=== PATIENT | female | born 1980 | race Caucasian/White ===

== ENCOUNTER 2020-10-24 11:36 | Emergency (ER) | payer MEDICAID, SELFPAY ==
--- NOTE | ~2020-10-24 | MR_ITS ---
EXAMINATION: MR BRAIN WITHOUT CONTRAST CLINICAL INFORMATION: Dizziness. COMPARISON: CTA from 10/24/2020. TECHNIQUE: Multiplanar, multisequence imaging of the brain was performed without contrast. Slightly limited study with motion artifacts. FINDINGS: No diffusion abnormalities are identified to suggest an acute or subacute infarct. The ventricles are normal in size. No mass effect or midline shift is seen. No brain parenchymal signal abnormality is noted. No extra-axial fluid collections are seen. The brainstem and cerebellum are normal. The gradient refocused acquisition is normal. The craniovertebral junction and midline structures are normal. The marrow is somewhat low in signal diffusely. The major intracranial flow voids at the level of the [place] are preserved. The dural venous sinus flow voids are maintained. The mastoid air cells and paranasal sinuses are well aerated. MR/MR head/brain wo con IMPRESSION: Normal MRI of the brain. No acute process. Generalized signal abnormality within the bone marrow. This finding is nonspecific and possible etiologies include stimulated red marrow, as can be seen with smoking, iron deficiency, and chronic infection. Recommend correlation with clinical history and consider a CBC analysis for further workup.
--- NOTE | ~2020-10-24 | CT_ITS ---
EXAMINATION: CT ANGIOGRAM NECK WITH CONTRAST CT ANGIOGRAM BRAIN WITH CONTRAST CLINICAL INFORMATION: Dizziness. Outside window. Stroke? COMPARISON: None. TECHNIQUE: Test bolus sequences followed by intravenous administration 70 mL of Omnipaque 350. Helical imaging was performed in the axial plane from the thoracic inlet to the skull vertex. Delayed postcontrast imaging of the head was also performed. The data was processed at the cytogenetics technologist workstation for generation of MIP sequences. Angled MIPs and volume rendered reformatted images were also generated at an offline 3D workstation. Stenoses are assessed in accordance with NASCET criteria unless otherwise indicated. This CT examination was performed using dose optimization techniques as appropriate, variously including the following: *Automated exposure control *Adjustment of mA and/or kV according to patient size (this includes techniques or standardized protocols for targeted exams where dose is matched to indication/reason for exam; i.e. extremities or head) *Use of iterative reconstruction technique DLP: 2237 mGy-cm FINDINGS: Head CT: There is no intracranial hemorrhage, large acute infarction, or mass lesion. The ventricles are normal in size and configuration without evidence of hydrocephalus. No abnormal enhancement is seen on the postcontrast images. The dural venous sinuses demonstrate normal opacification. The visualized paranasal sinuses and mastoid air cells are clear. Neck CTA: There is a normal aortic arch with no significant stenosis of the great vessel origins. The common and internal carotid arteries are normal in course and caliber. Both vertebral arteries are widely patent throughout their extracranial cervical course. Head CTA: No intracranial aneurysm is seen. The intracranial internal carotid arteries appear normal. The anterior cerebral artery, anterior communicating artery, and middle cerebral arteries appear normal. The intradural vertebral arteries and basilar artery appear normal. The posterior cerebral arteries appear normal. Non-vascular findings: The cervical soft tissues are within normal limits. The upper lungs are clear. No significant abnormality seen within the spine. CT/CT angio head neck IMPRESSION: CT head: No intracranial hemorrhage or large acute infarction. CTA neck: No stenosis in the major arteries of the neck. CTA head: No large vessel occlusion or stenosis within the intracranial circulation.. This critical result was discussed with ALYSHA Bunch on 10/24/2020 3:02 PM, and it was ascertained that the content and urgency of the report was understood at the time of direct communication.
[2020-10-24 11:42] VITALS: BP 116/78; BP 120/86; PULSE 79; PULSE 86; RESP 18; TEMP 36.9; O2SAT 99; BMI 28.2
[2020-10-24 13:10] LABS: MANUAL DIFF FLAG NO
[2020-10-24 13:17] VITALS: BP 127/78; PULSE 68; RESP 16; O2SAT 100
--- NOTE | 2020-10-24 13:17 | ECG_ITS ---
Test Reason : WEAKNESS Blood Pressure : / mmHG Vent. Rate : 059 BPM Atrial Rate : 059 BPM P-R Int : 172 ms QRS Dur : 082 ms QT Int : 432 ms P-R-T Axes : 052 031 020 degrees QTc Int : 427 ms Sinus bradycardia with sinus arrhythmia Otherwise normal ECG No previous ECGs available Referred By: Julian Mcfadden Electronically Signed By:LANI MORENO MD
[2020-10-24 13:18] LABS: Basophils Percent Auto 0.6 % (0-2); Eosinophils Absolute Auto 0.1 X10*3/uL (0.0-0.4); Eosinophils Percent Auto 1.6 % (0-4); Hematocrit 27.6 % (37-47); Hemoglobin 7.8 g/dl (12.0-16.0); Imm Gran Abs Auto 0.01 X10*3/uL (0.00-0.03); Imm Gran Pct Auto 0.2 % (0.0-0.4); Lymphocytes Absolute Auto 1.2 X10*3/uL (1.2-4.9); Lymphocytes Percent Auto 24.7 % (20-40); Mean Corpuscular HGB Conc 28.3 g/dl (31.0-35.0); Mean Corpuscular Hemoglobin 17.8 pg (27.0-33.0); Mean Platelet Volume 8.6 fL (9.4-12.3); Monocytes Absolute Auto 0.3 X10*3/uL (0.1-1.2); Monocytes Percent Auto 5.9 % (2-11); Neutrophils Absolute Auto 3.3 X10*3/uL (2.0-8.3); Platelet Count 432 X10*3/uL (160-400); Red Blood Count 4.39 X10*6/uL (4.20-5.50); Red Cell Distribution Width 21.1 % (11.0-16.0); White Blood Count 4.9 X10*3/uL (4.8-10.8)
[2020-10-24 13:25] LABS: Mean Corpuscular Volume 62.9 fL (80-98)
[2020-10-24] MEDS: 0.9 % Sodium Chloride 1,000 ML 999 ML IV (13:34)
[2020-10-24] MEDS: Meclizine HCl 25 MG TABLET 50 MG PO (13:34)
[2020-10-24] MEDS: diazePAM 2 MG TABLET PO (13:34)
[2020-10-24 13:36] VITALS: BP 132/67; PULSE 62
[2020-10-24 13:37] VITALS: BP 122/80; BP 126/75; PULSE 64; PULSE 70
[2020-10-24 13:43] LABS: Anion Gap 13 (12-20); Blood Urea Nitrogen 8 mg/dL (9-16); Calcium 8.7 mg/dL (8.4-10.2); Carbon Dioxide 24 mmol/L (22-29); Chloride 105 mmol/L (96-108); Creatinine Clr Calc Pharmacy 84.7; Estimated Glomerular Filt Rate > 60; Glucose Random 110 mg/dL (60-115); Potassium 4.3 mmol/L (3.3-5.1); Sodium 138 mmol/L (135-145)
--- NOTE | 2020-10-24 13:43 | ED.DIZZY ---
HPI - Dizziness General Chief Complaint: Dizziness <ALYSHA Gee Last Filed: 10/24/20 21:46> Stated Complaint: DIZZY THIS AM <ALYSHA Gee Last Filed: 10/24/20 21:46> Time Seen by Provider: 10/24/20 16:30 <ALYSHA Gee Last Filed: 10/24/20 21:46> Source: patient <ALYSHA Gee Last Filed: 10/24/20 21:46> Mode of arrival: ambulatory <ALYSHA Gee Last Filed: 10/24/20 21:46> Limitations: no limitations <ALYSHA Gee Last Filed: 10/24/20 21:46> History of Present Illness HPI Narrative: Patient presents to ED for dizzines described as weakness and the room spinning. Patient states she woke up with the dizziness. Patient denies hitting head recently, fever, chills, neck stiffness. Patient states also stating having migraine exacerbation since last night. Patient states history of migraines but does not have any PCP does not follow-up with no neurology. Is not on any migraine regimen. <ALYSHA Gee Last Filed: 10/24/20 21:46> Related Data Home Medications: Home Medications Medication Instructions Recorded Confirmed No Known Home Meds 10/24/20 10/24/20 <ALYSHA Gee Last Filed: 10/24/20 21:46> Allergies/Adverse Reactions: Allergies Allergy/AdvReac Type Severity Reaction Status Date / Time amoxicillin Allergy Swelling Verified 10/24/20 11:47 <ALYSHA Gee Last Filed: 10/24/20 21:46> Review of Systems Review of Systems: Yes all other systems are reviewed and are negative <ALYSHA Gee Last Filed: 10/24/20 21:46> Constitutional: Constitutional: Reports as per HPI and Reports no additional constitutional complaints <ALYSHA Gee Last Filed: 10/24/20 21:46> Eyes: Eyes: Reports as per HPI and Reports no additional eye complaints <ALYSHA Gee Last Filed: 10/24/20 21:46> ENT: Reports system reviewed and no additional complaints, except as documented, Reports as per HPI and Reports dizziness <ALYSHA Gee Last Filed: 10/24/20 21:46> Cardiovascular: Cardiovascular: Reports as per HPI and Reports no additional cardiovascular complaints <ALYSHA Gee Last Filed: 10/24/20 21:46> Respiratory: Respiratory: Reports as per HPI and Reports no additional respiratory complaints <ALYSHA Gee Last Filed: 10/24/20 21:46> Gastrointestinal: Gastrointestinal: Reports as per HPI and Reports no additional gastrointestinal complaints <ALYSHA Gee - Last Filed: 10/24/20 21:46> Genitourinary: Genitourinary: Reports no additional female genitourinary complaints and Reports as per HPI <ALYSHA Gee Last Filed: 10/24/20 21:46> Musculoskeletal: Musculoskeletal: Reports no additional musculoskeletal complaints and Reports as per HPI <ALYSHA Gee - Last Filed: 10/24/20 21:46> Integumentary/Breasts: Skin/Breast: Reports system reviewed and no additional complaints, except as docu and Reports as per HPI <ALYSHA Gee - Last Filed: 10/24/20 21:46> Neurologic: Reports system reviewed and no additional complaints, except as documented, Reports as per HPI and Reports dizziness <ALYSHA Gee Last Filed: 10/24/20 21:46> [facility] Social History Social History: Social History Alcohol intake: never Smoking Status: Never smoker Use of substances other than those prescribed or required for medical reasons: No Advance Directives: No Advance Directives Information Provided: No <ALYSHA Gee - Last Filed: 10/24/20 21:46> Physical Exam Vital Signs: Vital Signs: Last Vital Signs Temp 98.4 F 10/24/20 11:42 Pulse 75 10/24/20 18:59 Resp 10/25/20 02:00 BP 114/68 10/24/20 18:59 Pulse Ox 98 10/25/20 02:00 Body Mass Index 28.2 <ALYSHA Gee - Last Filed: 10/24/20 21:46> Vital Signs: Last Vital Signs Temp 98.4 F 10/24/20 11:42 Pulse 75 10/24/20 18:59 Resp 10/25/20 02:00 BP 114/68 10/24/20 18:59 Pulse Ox 98 10/25/20 02:00 Body Mass Index 28.2 <Izabela Zepeda MD - Last Filed: 10/25/20 03:06> Const: General: cooperative, healthy appearing, comfortable, no acute distress, well developed, alert, awake and Physically active <ALYSHA Gee Last Filed: 10/24/20 21:46> Orientation/consciousness: patient oriented x3 <ALYSHA Gee Last Filed: 10/24/20 21:46> HENMT: Head: Yes normal to inspection, Yes No palpable skull fracture present, Yes normocephalic, Yes atraumatic, No abrasion, No Acrocyanosis present, No Steele's sign, No contusion, No cranial bruits, No hematoma, No laceration, No occipital foramen tenderness, No palpable skull fracture, No raccoon eyes, No scalp lesion, No scalp tenderness, No Temporal artery tenderness present and No periorbital ecchymosis <ALYSHA Gee Last Filed: 10/24/20 21:46> Eyes: Other: left horizontal nystagmus <ALYSHA Gee Last Filed: 10/24/20 21:46> General: appearance normal, both eyes and all related structures <ALYSHA Gee Last Filed: 10/24/20 21:46> Neck: Neck: Yes normal visual inspection, Yes full ROM, Yes no lymphadenopathy, Yes no meningeal signs, Yes trachea midline, Yes supple, No midline deformity, No positive Brudzinski's sign, No positive Kernig's sign and No tender <ALYSHA Gee Last Filed: 10/24/20 21:46> Chest: Chest palpation & inspection: normal inspection of the chest and normal palpation of entire chest wall <ALYSHA Gee Last Filed: 10/24/20 21:46> Resp: Effort & Inspection: normal respiratory effort and able to speak in complete sentences <ALYSHA Gee Last Filed: 10/24/20 21:46> Auscultation: clear to auscultation bilaterally <ALYSHA Gee Last Filed: 10/24/20 21:46> Cardio: Jugular venous distension: no JVD <ALYSHA Gee Last Filed: 10/24/20 21:46> Heart sounds: S1 normal heart sound present and S2 normal heart sound present <ALYSHA Gee Last Filed: 10/24/20 21:46> GI: Inspection: Yes normal to inspection and No abdominal wall ecchymosis <ALYSHA Gee Last Filed: 10/24/20 21:46> Palpation (GI): Soft to palpation, not firm, nontender, no guarding and not rigid <ALYSHA Gee Ryan Last Filed: 10/24/20 21:46> : General: No CVA tenderness and Yes no CVA tenderness <ALYSHA Gee Last Filed: 10/24/20 21:46> Back/Spine/Pelvis: Back: no CVA tenderness, No CVA tenderness and No back tenderness <ALYSHA Gee Last Filed: 10/24/20 21:46> Skin: General skin exam: no rashes or lesions noted and abnormal elasticity <ALYSHA Gee Ryan Last Filed: 10/24/20 21:46> Neuro: Other: Negative facial droop. Negative pronator drift. Speech is normal. Negative for any focal deficit. All extremities strength are equal. Positive for left horizontal nystagmus. Patient feels dizzy on ambulation <ALYSHA Gee Last Filed: 10/24/20 21:46> General: patient oriented x3, no meningeal signs and CN's II-XI intact bilaterally <ALYSHA Gee Last Filed: 10/24/20 21:46> Extrem: General: Yes normal to inspection and Yes full ROM <ALYSHA Gee Ryan Last Filed: 10/24/20 21:46> Psych: Appearance: grossly normal, well kempt and not disheveled <ALYSHA Gee Last Filed: 10/24/20 21:46> NIH Stroke Scale Internal: Other (over 4 hours. woke up with symptoms) <ALYSHA Gee Last Filed: 10/24/20 21:46> Level of Consciousness: Alert <ALYSHA Gee Last Filed: 10/24/20 21:46> Level of Consciousness Questions: Answers both questions correctly <ALYSHA Gee - Last Filed: 10/24/20 21:46> Level of Consciousness Commands: Performs both tasks correctly <ALYSHA Gee - Last Filed: 10/24/20 21:46> Best Gaze: Normal <ALYSHA Gee Last Filed: 10/24/20 21:46> Visual: No visual loss <ALYSHA Gee - Last Filed: 10/24/20 21:46> Facial Palsy: Normal <ALYSHA Gee - Last Filed: 10/24/20 21:46> Motor Arm (Right): No drift <ALYSHA Gee - Last Filed: 10/24/20 21:46> Motor Arm (Left): No drift <ALYSHA Gee - Last Filed: 10/24/20 21:46> Motor Leg (Right): No drift <ALYSHA Gee - Last Filed: 10/24/20 21:46> Motor Leg (Left): No drift <ALYSHA Gee - Last Filed: 10/24/20 21:46> Limb Ataxia: Absent <ALYSHA Gee - Last Filed: 10/24/20 21:46> Sensory: Normal <ALYSHA Gee Last Filed: 10/24/20 21:46> Best Language: No aphasia <ALYSHA Gee - Last Filed: 10/24/20 21:46> Dysarthia: Normal <ALYSHA Gee - Last Filed: 10/24/20 21:46> Extinction and Inattention: No abnormality <ALYSHA Gee - Last Filed: 10/24/20 21:46> Score: 0 <ALYSHA Gee - Last Filed: 10/24/20 21:46> Course Course Course Narrative: Negative for any focal deficit. History physical exam does not indicate stroke, but if patient is outside the window since she woke up with dizziness. This may be a complicated migraine exacerbation/vertigo. Will order orthostatics, basic labs, troponin, EKG, imaging of head and neck. <ALYSHA Gee Last Filed: 10/24/20 21:46> I received sign-out from ALYSHA Mcfadden. Patient was ambulated at 03:00, patient was able to walk by herself, steady gait, unassisted. Patient has a sober ride picking her up. Patient ready for discharge. <Izabela Zepeda MD - Last Filed: 10/25/20 03:06> Reevaluation(s) Reevaluation #1: Patient's orthostatics negative. EKG sinus bradycardia negative STEMI. Negative for any neuro deficit. <ALYSHA Gee - Last Filed: 10/24/20 21:46> Time: 14:51 <ALYSHA Gee - Last Filed: 10/24/20 21:46> Reevaluation #2: Patient's CT came back negative for stroke. Patient repeat CBC is stable. Once again attempt was made for patient to ambulate and patient states she still feels dizzy cannot walk on her own. Due to this patient sent for MRI to rule posterior cerebellar stroke. Once again negative for focal deficit. Rectal exam negative for any gray blood <ALYSHA Gee - Last Filed: 10/24/20 21:46> Time: 17:25 <ALYSHA Gee - Last Filed: 10/24/20 21:46> Reevaluation #3: Patient MRI came back negative. Patient now able to get up and ambulate a little, but then immediately began shuffling back and forward like she was about to fall. Patient was placed back in the bed. Awaiting U tox and alcohol level. Will call hospitalist for admission. Repeat CBC came back stable. Once again patient states known history of anemia and never had any blood transfusion. Two CBCs were done due to patient never being in the ED before and there was none to compare in the past. <ALYSHA Gee - Last Filed: 10/24/20 21:46> Time: 19:47 <ALYSHA Gee - Last Filed: 10/24/20 21:46> Additional Reevaluation(s): Spoke with hospitalist concerning case due to patient still having trouble walking. Hospice recommend patient be placed in ED observation and I agree with plan. Patient is alert oriented x3. Patient states headache resolved after receiving Fioricet and Reglan. Not suspecting meningitis. Once again no focal deficit. Not suspecting encephalitis. utox shows benzoa and barbituates which may be cause of dizziness, but patient will be admitted to observation. <ALYSHA Gee - Last Filed: 10/24/20 21:46> MDM - Dizziness Lab Data Result diagrams: : 10/24/20 16:46 10/24/20 13:01 <ALYSHA Gee - Last Filed: 10/24/20 21:46> Labs: Lab Results 10/24/20 10/24/20 10/24/20 Range/Units 13:01 13:01 13:01 WBC 4.9 (4.8-10.8) X10*3/uL RBC 4.39 (4.20-5.50) X10*6/uL Hgb 7.8 L (12.0-16.0) g/dl Hct 27.6 L (37-47) % MCV 62.9 L (80-98) fL MCH 17.8 L (27.0-33.0) pg MCHC 28.3 L (31.0-35.0) g/dl RDW 21.1 H (11.0-16.0) % Plt Count 432 H (160-400) X10*3/uL MPV 8.6 L (9.4-12.3) fL Immature Gran % (Auto) 0.2 (0.0-0.4) % Neut % (Auto) 67.0 (45-73) % Lymph % (Auto) 24.7 (20-40) % [place] % (Auto) 5.9 (2-11) % Eos % (Auto) 1.6 (0-4) % Baso % (Auto) 0.6 (0-2) % Lymph # (Auto) 1.2 (1.2-4.9) X10*3/uL [place] # (Auto) 0.3 (0.1-1.2) X10*3/uL Eos # (Auto) 0.1 (0.0-0.4) X10*3/uL Baso # (Auto) 0.0 (0.0-0.2) X10*3/uL Abs Immat Gran (auto) 0.01 (0.00-0.03) X10*3/uL Absolute Neuts (auto) 3.3 (2.0-8.3) X10*3/uL Absolute Nucleated RBC 0.000 (0.0-0.012) X10*3/uL Nucleated RBC % (auto) 0.0 (0.0-0.2) /100WBC Hold Purple Top SEE NOTE PT (10.8-13.0) SEC INR (0.9-1.1) APTT (24.1-38.0) SEC Hold Blue Top Sodium 138 (135-145) mmol/L Potassium 4.3 (3.3-5.1) mmol/L Chloride 105 (96-108) mmol/L Carbon Dioxide 24 (22-29) mmol/L Anion Gap 13 (12-20) BUN 8 L (9-16) mg/dL Creatinine 0.69 (0.5-1.4) mg/dL Estim Creat Clear Calc 84.7 Estimated GFR > 60 Random Glucose 110 (60-115) mg/dL Calcium 8.7 (8.4-10.2) mg/dL Magnesium 2.2 (1.6-2.6) mg/dL Troponin I High Sens (<3.5-17.0) ng/L Beta HCG, Quant < 2 mIU/mL Urine Color Urine Appearance Urine pH (5.0-8.0) Ur Specific [place] (1.005-1.025) Urine Protein (NEG-TRACE) MG/DL Urine Glucose (UA) (NEG) MG/DL Urine Ketones (NEG) MG/DL Urine Blood (NEG) Urine Nitrite (NEG) Ur Leukocyte Esterase (NEG) Urine RBC (0) /HPF Urine WBC (0-4) /HPF Ur Squamous Epith Cells /LPF Urine Bacteria /LPF Urine Test (NEGATIVE) Stool Occult Blood (NEG) Urine Opiates Screen (Not Detect) Ur Barbiturates Screen (Not Detect) Ur Phencyclidine Scrn (Not Detect) Ur Amphetamines Screen (Not Detect) U Benzodiazepines Scrn (Not Detect) Urine Cocaine Screen (Not Detect) U Marijuana (THC) Screen (Not Detect) Ethyl Alcohol mg/dL COVID-19 ([facility]EANA) (Negative) COVID-19 Clin Com 10/24/20 10/24/20 10/24/20 Range/Units 13:01 13:01 16:46 WBC 6.7 (4.8-10.8) X10*3/uL RBC 4.13 L (4.20-5.50) X10*6/uL Hgb 7.5 L (12.0-16.0) g/dl Hct 26.3 L (37-47) % MCV 63.7 L (80-98) fL MCH 18.2 L (27.0-33.0) pg MCHC 28.5 L (31.0-35.0) g/dl RDW 21.2 H (11.0-16.0) % Plt Count 385 (160-400) X10*3/uL MPV 8.6 L (9.4-12.3) fL Immature Gran % (Auto) 0.3 (0.0-0.4) % Neut % (Auto) 61.2 (45-73) % Lymph % (Auto) 28.6 (20-40) % [place] % (Auto) 6.8 (2-11) % Eos % (Auto) 2.6 (0-4) % Baso % (Auto) 0.5 (0-2) % Lymph # (Auto) 1.9 (1.2-4.9) X10*3/uL [place] # (Auto) 0.5 (0.1-1.2) X10*3/uL Eos # (Auto) 0.2 (0.0-0.4) X10*3/uL Baso # (Auto) 0.0 (0.0-0.2) X10*3/uL Abs Immat Gran (auto) 0.02 (0.00-0.03) X10*3/uL Absolute Neuts (auto) 4.1 (2.0-8.3) X10*3/uL Absolute Nucleated RBC 0.000 (0.0-0.012) X10*3/uL Nucleated RBC % (auto) 0.0 (0.0-0.2) /100WBC Hold Purple Top PT 13.3 H (10.8-13.0) SEC INR 1.1 (0.9-1.1) APTT 27.7 (24.1-38.0) SEC Hold Blue Top SEE NOTE Sodium (135-145) mmol/L Potassium (3.3-5.1) mmol/L Chloride (96-108) mmol/L Carbon Dioxide (22-29) mmol/L Anion Gap (12-20) BUN (9-16) mg/dL Creatinine (0.5-1.4) mg/dL Estim Creat Clear Calc Estimated GFR Random Glucose (60-115) mg/dL Calcium (8.4-10.2) mg/dL Magnesium (1.6-2.6) mg/dL Troponin I High Sens 7.2 (<3.5-17.0) ng/L Beta HCG, Quant mIU/mL Urine Color Urine Appearance Urine pH (5.0-8.0) Ur Specific [place] (1.005-1.025) Urine Protein (NEG-TRACE) MG/DL Urine Glucose (UA) (NEG) MG/DL Urine Ketones (NEG) MG/DL Urine Blood (NEG) Urine Nitrite (NEG) Ur Leukocyte Esterase (NEG) Urine RBC (0) /HPF Urine WBC (0-4) /HPF Ur Squamous Epith Cells /LPF Urine Bacteria /LPF Urine Test (NEGATIVE) Stool Occult Blood (NEG) Urine Opiates Screen (Not Detect) Ur Barbiturates Screen (Not Detect) Ur Phencyclidine Scrn (Not Detect) Ur Amphetamines Screen (Not Detect) U Benzodiazepines Scrn (Not Detect) Urine Cocaine Screen (Not Detect) U Marijuana (THC) Screen (Not Detect) Ethyl Alcohol mg/dL COVID-19 ([facility]EANA) (Negative) COVID-19 Clin Com 10/24/20 10/24/20 10/24/20 Range/Units 19:48 19:48 19:48 WBC (4.8-10.8) X10*3/uL RBC (4.20-5.50) X10*6/uL Hgb (12.0-16.0) g/dl Hct (37-47) % MCV (80-98) fL MCH (27.0-33.0) pg MCHC (31.0-35.0) g/dl RDW (11.0-16.0) % Plt Count (160-400) X10*3/uL MPV (9.4-12.3) fL Immature Gran % (Auto) (0.0-0.4) % Neut % (Auto) (45-73) % Lymph % (Auto) (20-40) % [place] % (Auto) (2-11) % Eos % (Auto) (0-4) % Baso % (Auto) (0-2) % Lymph # (Auto) (1.2-4.9) X10*3/uL [place] # (Auto) (0.1-1.2) X10*3/uL Eos # (Auto) (0.0-0.4) X10*3/uL Baso # (Auto) (0.0-0.2) X10*3/uL Abs Immat Gran (auto) (0.00-0.03) X10*3/uL Absolute Neuts (auto) (2.0-8.3) X10*3/uL Absolute Nucleated RBC (0.0-0.012) X10*3/uL Nucleated RBC % (auto) (0.0-0.2) /100WBC Hold Purple Top PT (10.8-13.0) SEC INR (0.9-1.1) APTT (24.1-38.0) SEC Hold Blue Top Sodium (135-145) mmol/L Potassium (3.3-5.1) mmol/L Chloride (96-108) mmol/L Carbon Dioxide (22-29) mmol/L Anion Gap (12-20) BUN (9-16) mg/dL Creatinine (0.5-1.4) mg/dL Estim Creat Clear Calc Estimated GFR Random Glucose (60-115) mg/dL Calcium (8.4-10.2) mg/dL Magnesium (1.6-2.6) mg/dL Troponin I High Sens (<3.5-17.0) ng/L Beta HCG, Quant mIU/mL Urine Color STRAW Urine Appearance CLEAR Urine pH 6.5 (5.0-8.0) Ur Specific [place] 1.015 (1.005-1.025) Urine Protein NEG (NEG-TRACE) MG/DL Urine Glucose (UA) NEG (NEG) MG/DL Urine Ketones 5 (NEG) MG/DL Urine Blood NEG (NEG) Urine Nitrite NEG (NEG) Ur Leukocyte Esterase NEG (NEG) Urine RBC 0-2 (0) /HPF Urine WBC 0-2 (0-4) /HPF Ur Squamous Epith Cells 3+ /LPF Urine Bacteria NONE /LPF Urine Test NEGATIVE (NEGATIVE) Stool Occult Blood (NEG) Urine Opiates Screen Not Detected (Not Detect) Ur Barbiturates Screen POSITIVE H (Not Detect) Ur Phencyclidine Scrn Not Detected (Not Detect) Ur Amphetamines Screen Not Detected (Not Detect) U Benzodiazepines Scrn POSITIVE H (Not Detect) Urine Cocaine Screen Not Detected (Not Detect) U Marijuana (THC) Screen POSITIVE H (Not Detect) Ethyl Alcohol mg/dL COVID-19 ([facility]EANA) (Negative) COVID-19 Clin Com 10/24/20 10/24/20 10/24/20 Range/Units 19:48 20:22 21:33 WBC (4.8-10.8) X10*3/uL RBC (4.20-5.50) X10*6/uL Hgb (12.0-16.0) g/dl Hct (37-47) % MCV (80-98) fL MCH (27.0-33.0) pg MCHC (31.0-35.0) g/dl RDW (11.0-16.0) % Plt Count (160-400) X10*3/uL MPV (9.4-12.3) fL Immature Gran % (Auto) (0.0-0.4) % Neut % (Auto) (45-73) % Lymph % (Auto) (20-40) % [place] % (Auto) (2-11) % Eos % (Auto) (0-4) % Baso % (Auto) (0-2) % Lymph # (Auto) (1.2-4.9) X10*3/uL [place] # (Auto) (0.1-1.2) X10*3/uL Eos # (Auto) (0.0-0.4) X10*3/uL Baso # (Auto) (0.0-0.2) X10*3/uL Abs Immat Gran (auto) (0.00-0.03) X10*3/uL Absolute Neuts (auto) (2.0-8.3) X10*3/uL Absolute Nucleated RBC (0.0-0.012) X10*3/uL Nucleated RBC % (auto) (0.0-0.2) /100WBC Hold Purple Top PT (10.8-13.0) SEC INR (0.9-1.1) APTT (24.1-38.0) SEC Hold Blue Top Sodium (135-145) mmol/L Potassium (3.3-5.1) mmol/L Chloride (96-108) mmol/L Carbon Dioxide (22-29) mmol/L Anion Gap (12-20) BUN (9-16) mg/dL Creatinine (0.5-1.4) mg/dL Estim Creat Clear Calc Estimated GFR Random Glucose (60-115) mg/dL Calcium (8.4-10.2) mg/dL Magnesium (1.6-2.6) mg/dL Troponin I High Sens 6.9 (<3.5-17.0) ng/L Beta HCG, Quant mIU/mL Urine Color Urine Appearance Urine pH (5.0-8.0) Ur Specific [place] (1.005-1.025) Urine Protein (NEG-TRACE) MG/DL Urine Glucose (UA) (NEG) MG/DL Urine Ketones (NEG) MG/DL Urine Blood (NEG) Urine Nitrite (NEG) Ur Leukocyte Esterase (NEG) Urine RBC (0) /HPF Urine WBC (0-4) /HPF Ur Squamous Epith Cells /LPF Urine Bacteria /LPF Urine Test (NEGATIVE) Stool Occult Blood (NEG) Urine Opiates Screen (Not Detect) Ur Barbiturates Screen (Not Detect) Ur Phencyclidine Scrn (Not Detect) Ur Amphetamines Screen (Not Detect) U Benzodiazepines Scrn (Not Detect) Urine Cocaine Screen (Not Detect) U Marijuana (THC) Screen (Not Detect) Ethyl Alcohol < 10 mg/dL COVID-19 ([facility]EANA) Negative (Negative) COVID-19 Clin Com See Note 10/24/20 Range/Units 21:40 WBC (4.8-10.8) X10*3/uL RBC (4.20-5.50) X10*6/uL Hgb (12.0-16.0) g/dl Hct (37-47) % MCV (80-98) fL MCH (27.0-33.0) pg MCHC (31.0-35.0) g/dl RDW (11.0-16.0) % Plt Count (160-400) X10*3/uL MPV (9.4-12.3) fL Immature Gran % (Auto) (0.0-0.4) % Neut % (Auto) (45-73) % Lymph % (Auto) (20-40) % [place] % (Auto) (2-11) % Eos % (Auto) (0-4) % Baso % (Auto) (0-2) % Lymph # (Auto) (1.2-4.9) X10*3/uL [place] # (Auto) (0.1-1.2) X10*3/uL Eos # (Auto) (0.0-0.4) X10*3/uL Baso # (Auto) (0.0-0.2) X10*3/uL Abs Immat Gran (auto) (0.00-0.03) X10*3/uL Absolute Neuts (auto) (2.0-8.3) X10*3/uL Absolute Nucleated RBC (0.0-0.012) X10*3/uL Nucleated RBC % (auto) (0.0-0.2) /100WBC Hold Purple Top PT (10.8-13.0) SEC INR (0.9-1.1) APTT (24.1-38.0) SEC Hold Blue Top Sodium (135-145) mmol/L Potassium (3.3-5.1) mmol/L Chloride (96-108) mmol/L Carbon Dioxide (22-29) mmol/L Anion Gap (12-20) BUN (9-16) mg/dL Creatinine (0.5-1.4) mg/dL Estim Creat Clear Calc Estimated GFR Random Glucose (60-115) mg/dL Calcium (8.4-10.2) mg/dL Magnesium (1.6-2.6) mg/dL Troponin I High Sens (<3.5-17.0) ng/L Beta HCG, Quant mIU/mL Urine Color Urine Appearance Urine pH (5.0-8.0) Ur Specific [place] (1.005-1.025) Urine Protein (NEG-TRACE) MG/DL Urine Glucose (UA) (NEG) MG/DL Urine Ketones (NEG) MG/DL Urine Blood (NEG) Urine Nitrite (NEG) Ur Leukocyte Esterase (NEG) Urine RBC (0) /HPF Urine WBC (0-4) /HPF Ur Squamous Epith Cells /LPF Urine Bacteria /LPF Urine Test (NEGATIVE) Stool Occult Blood NEG (NEG) Urine Opiates Screen (Not Detect) Ur Barbiturates Screen (Not Detect) Ur Phencyclidine Scrn (Not Detect) Ur Amphetamines Screen (Not Detect) U Benzodiazepines Scrn (Not Detect) Urine Cocaine Screen (Not Detect) U Marijuana (THC) Screen (Not Detect) Ethyl Alcohol mg/dL COVID-19 ([facility]EANA) (Negative) COVID-19 Clin Com <ALYSHA Gee - Last Filed: 10/24/20 21:46> Lab Results 10/24/20 10/24/20 10/24/20 Range/Units 13:01 13:01 13:01 WBC 4.9 (4.8-10.8) X10*3/uL RBC 4.39 (4.20-5.50) X10*6/uL Hgb 7.8 L (12.0-16.0) g/dl Hct 27.6 L (37-47) % MCV 62.9 L (80-98) fL MCH 17.8 L (27.0-33.0) pg MCHC 28.3 L (31.0-35.0) g/dl RDW 21.1 H (11.0-16.0) % Plt Count 432 H (160-400) X10*3/uL MPV 8.6 L (9.4-12.3) fL Immature Gran % (Auto) 0.2 (0.0-0.4) % Neut % (Auto) 67.0 (45-73) % Lymph % (Auto) 24.7 (20-40) % [place] % (Auto) 5.9 (2-11) % Eos % (Auto) 1.6 (0-4) % Baso % (Auto) 0.6 (0-2) % Lymph # (Auto) 1.2 (1.2-4.9) X10*3/uL [place] # (Auto) 0.3 (0.1-1.2) X10*3/uL Eos # (Auto) 0.1 (0.0-0.4) X10*3/uL Baso # (Auto) 0.0 (0.0-0.2) X10*3/uL Abs Immat Gran (auto) 0.01 (0.00-0.03) X10*3/uL Absolute Neuts (auto) 3.3 (2.0-8.3) X10*3/uL Absolute Nucleated RBC 0.000 (0.0-0.012) X10*3/uL Nucleated RBC % (auto) 0.0 (0.0-0.2) /100WBC Hold Purple Top SEE NOTE PT (10.8-13.0) SEC INR (0.9-1.1) APTT (24.1-38.0) SEC Hold Blue Top Sodium 138 (135-145) mmol/L Potassium 4.3 (3.3-5.1) mmol/L Chloride 105 (96-108) mmol/L Carbon Dioxide 24 (22-29) mmol/L Anion Gap 13 (12-20) BUN 8 L (9-16) mg/dL Creatinine 0.69 (0.5-1.4) mg/dL Estim Creat Clear Calc 84.7 Estimated GFR > 60 Random Glucose 110 (60-115) mg/dL Calcium 8.7 (8.4-10.2) mg/dL Magnesium 2.2 (1.6-2.6) mg/dL Troponin I High Sens (<3.5-17.0) ng/L Beta HCG, Quant < 2 mIU/mL Urine Color Urine Appearance Urine pH (5.0-8.0) Ur Specific [place] (1.005-1.025) Urine Protein (NEG-TRACE) MG/DL Urine Glucose (UA) (NEG) MG/DL Urine Ketones (NEG) MG/DL Urine Blood (NEG) Urine Nitrite (NEG) Ur Leukocyte Esterase (NEG) Urine RBC (0) /HPF Urine WBC (0-4) /HPF Ur Squamous Epith Cells /LPF Urine Bacteria /LPF Urine Test (NEGATIVE) Stool Occult Blood (NEG) Urine Opiates Screen (Not Detect) Ur Barbiturates Screen (Not Detect) Ur Phencyclidine Scrn (Not Detect) Ur Amphetamines Screen (Not Detect) U Benzodiazepines Scrn (Not Detect) Urine Cocaine Screen (Not Detect) U Marijuana (THC) Screen (Not Detect) Ethyl Alcohol mg/dL COVID-19 ([facility]) (Negative) COVID-19 Clin Com 10/24/20 10/24/20 10/24/20 Range/Units 13:01 13:01 16:46 WBC 6.7 (4.8-10.8) X10*3/uL RBC 4.13 L (4.20-5.50) X10*6/uL Hgb 7.5 L (12.0-16.0) g/dl Hct 26.3 L (37-47) % MCV 63.7 L (80-98) fL MCH 18.2 L (27.0-33.0) pg MCHC 28.5 L (31.0-35.0) g/dl RDW 21.2 H (11.0-16.0) % Plt Count 385 (160-400) X10*3/uL MPV 8.6 L (9.4-12.3) fL Immature Gran % (Auto) 0.3 (0.0-0.4) % Neut % (Auto) 61.2 (45-73) % Lymph % (Auto) 28.6 (20-40) % [place] % (Auto) 6.8 (2-11) % Eos % (Auto) 2.6 (0-4) % Baso % (Auto) 0.5 (0-2) % Lymph # (Auto) 1.9 (1.2-4.9) X10*3/uL [place] # (Auto) 0.5 (0.1-1.2) X10*3/uL Eos # (Auto) 0.2 (0.0-0.4) X10*3/uL Baso # (Auto) 0.0 (0.0-0.2) X10*3/uL Abs Immat Gran (auto) 0.02 (0.00-0.03) X10*3/uL Absolute Neuts (auto) 4.1 (2.0-8.3) X10*3/uL Absolute Nucleated RBC 0.000 (0.0-0.012) X10*3/uL Nucleated RBC % (auto) 0.0 (0.0-0.2) /100WBC Hold Purple Top PT 13.3 H (10.8-13.0) SEC INR 1.1 (0.9-1.1) APTT 27.7 (24.1-38.0) SEC Hold Blue Top SEE NOTE Sodium (135-145) mmol/L Potassium (3.3-5.1) mmol/L Chloride (96-108) mmol/L Carbon Dioxide (22-29) mmol/L Anion Gap (12-20) BUN (9-16) mg/dL Creatinine (0.5-1.4) mg/dL Estim Creat Clear Calc Estimated GFR Random Glucose (60-115) mg/dL Calcium (8.4-10.2) mg/dL Magnesium (1.6-2.6) mg/dL Troponin I High Sens 7.2 (<3.5-17.0) ng/L Beta HCG, Quant mIU/mL Urine Color Urine Appearance Urine pH (5.0-8.0) Ur Specific [place] (1.005-1.025) Urine Protein (NEG-TRACE) MG/DL Urine Glucose (UA) (NEG) MG/DL Urine Ketones (NEG) MG/DL Urine Blood (NEG) Urine Nitrite (NEG) Ur Leukocyte Esterase (NEG) Urine RBC (0) /HPF Urine WBC (0-4) /HPF Ur Squamous Epith Cells /LPF Urine Bacteria /LPF Urine Test (NEGATIVE) Stool Occult Blood (NEG) Urine Opiates Screen (Not Detect) Ur Barbiturates Screen (Not Detect) Ur Phencyclidine Scrn (Not Detect) Ur Amphetamines Screen (Not Detect) U Benzodiazepines Scrn (Not Detect) Urine Cocaine Screen (Not Detect) U Marijuana (THC) Screen (Not Detect) Ethyl Alcohol mg/dL COVID-19 ([facility]) (Negative) COVID-19 Clin Com 10/24/20 10/24/20 10/24/20 Range/Units 19:48 19:48 19:48 WBC (4.8-10.8) X10*3/uL RBC (4.20-5.50) X10*6/uL Hgb (12.0-16.0) g/dl Hct (37-47) % MCV (80-98) fL MCH (27.0-33.0) pg MCHC (31.0-35.0) g/dl RDW (11.0-16.0) % Plt Count (160-400) X10*3/uL MPV (9.4-12.3) fL Immature Gran % (Auto) (0.0-0.4) % Neut % (Auto) (45-73) % Lymph % (Auto) (20-40) % [place] % (Auto) (2-11) % Eos % (Auto) (0-4) % Baso % (Auto) (0-2) % Lymph # (Auto) (1.2-4.9) X10*3/uL [place] # (Auto) (0.1-1.2) X10*3/uL Eos # (Auto) (0.0-0.4) X10*3/uL Baso # (Auto) (0.0-0.2) X10*3/uL Abs Immat Gran (auto) (0.00-0.03) X10*3/uL Absolute Neuts (auto) (2.0-8.3) X10*3/uL Absolute Nucleated RBC (0.0-0.012) X10*3/uL Nucleated RBC % (auto) (0.0-0.2) /100WBC Hold Purple Top PT (10.8-13.0) SEC INR (0.9-1.1) APTT (24.1-38.0) SEC Hold Blue Top Sodium (135-145) mmol/L Potassium (3.3-5.1) mmol/L Chloride (96-108) mmol/L Carbon Dioxide (22-29) mmol/L Anion Gap (12-20) BUN (9-16) mg/dL Creatinine (0.5-1.4) mg/dL Estim Creat Clear Calc Estimated GFR Random Glucose (60-115) mg/dL Calcium (8.4-10.2) mg/dL Magnesium (1.6-2.6) mg/dL Troponin I High Sens (<3.5-17.0) ng/L Beta HCG, Quant mIU/mL Urine Color STRAW Urine Appearance CLEAR Urine pH 6.5 (5.0-8.0) Ur Specific [place] 1.015 (1.005-1.025) Urine Protein NEG (NEG-TRACE) MG/DL Urine Glucose (UA) NEG (NEG) MG/DL Urine Ketones 5 (NEG) MG/DL Urine Blood NEG (NEG) Urine Nitrite NEG (NEG) Ur Leukocyte Esterase NEG (NEG) Urine RBC 0-2 (0) /HPF Urine WBC 0-2 (0-4) /HPF Ur Squamous Epith Cells 3+ /LPF Urine Bacteria NONE /LPF Urine Test NEGATIVE (NEGATIVE) Stool Occult Blood (NEG) Urine Opiates Screen Not Detected (Not Detect) Ur Barbiturates Screen POSITIVE H (Not Detect) Ur Phencyclidine Scrn Not Detected (Not Detect) Ur Amphetamines Screen Not Detected (Not Detect) U Benzodiazepines Scrn POSITIVE H (Not Detect) Urine Cocaine Screen Not Detected (Not Detect) U Marijuana (THC) Screen POSITIVE H (Not Detect) Ethyl Alcohol mg/dL COVID-19 ([facility]) (Negative) COVID-19 Clin Com 10/24/20 10/24/20 10/24/20 Range/Units 19:48 20:22 21:33 WBC (4.8-10.8) X10*3/uL RBC (4.20-5.50) X10*6/uL Hgb (12.0-16.0) g/dl Hct (37-47) % MCV (80-98) fL MCH (27.0-33.0) pg MCHC (31.0-35.0) g/dl RDW (11.0-16.0) % Plt Count (160-400) X10*3/uL MPV (9.4-12.3) fL Immature Gran % (Auto) (0.0-0.4) % Neut % (Auto) (45-73) % Lymph % (Auto) (20-40) % [place] % (Auto) (2-11) % Eos % (Auto) (0-4) % Baso % (Auto) (0-2) % Lymph # (Auto) (1.2-4.9) X10*3/uL [place] # (Auto) (0.1-1.2) X10*3/uL Eos # (Auto) (0.0-0.4) X10*3/uL Baso # (Auto) (0.0-0.2) X10*3/uL Abs Immat Gran (auto) (0.00-0.03) X10*3/uL Absolute Neuts (auto) (2.0-8.3) X10*3/uL Absolute Nucleated RBC (0.0-0.012) X10*3/uL Nucleated RBC % (auto) (0.0-0.2) /100WBC Hold Purple Top PT (10.8-13.0) SEC INR (0.9-1.1) APTT (24.1-38.0) SEC Hold Blue Top Sodium (135-145) mmol/L Potassium (3.3-5.1) mmol/L Chloride (96-108) mmol/L Carbon Dioxide (22-29) mmol/L Anion Gap (12-20) BUN (9-16) mg/dL Creatinine (0.5-1.4) mg/dL Estim Creat Clear Calc Estimated GFR Random Glucose (60-115) mg/dL Calcium (8.4-10.2) mg/dL Magnesium (1.6-2.6) mg/dL Troponin I High Sens 6.9 (<3.5-17.0) ng/L Beta HCG, Quant mIU/mL Urine Color Urine Appearance Urine pH (5.0-8.0) Ur Specific [place] (1.005-1.025) Urine Protein (NEG-TRACE) MG/DL Urine Glucose (UA) (NEG) MG/DL Urine Ketones (NEG) MG/DL Urine Blood (NEG) Urine Nitrite (NEG) Ur Leukocyte Esterase (NEG) Urine RBC (0) /HPF Urine WBC (0-4) /HPF Ur Squamous Epith Cells /LPF Urine Bacteria /LPF Urine Test (NEGATIVE) Stool Occult Blood (NEG) Urine Opiates Screen (Not Detect) Ur Barbiturates Screen (Not Detect) Ur Phencyclidine Scrn (Not Detect) Ur Amphetamines Screen (Not Detect) U Benzodiazepines Scrn (Not Detect) Urine Cocaine Screen (Not Detect) U Marijuana (THC) Screen (Not Detect) Ethyl Alcohol < 10 mg/dL COVID-19 ([facility]) Negative (Negative) COVID-19 Clin Com See Note 10/24/20 Range/Units 21:40 WBC (4.8-10.8) X10*3/uL RBC (4.20-5.50) X10*6/uL Hgb (12.0-16.0) g/dl Hct (37-47) % MCV (80-98) fL MCH (27.0-33.0) pg MCHC (31.0-35.0) g/dl RDW (11.0-16.0) % Plt Count (160-400) X10*3/uL MPV (9.4-12.3) fL Immature Gran % (Auto) (0.0-0.4) % Neut % (Auto) (45-73) % Lymph % (Auto) (20-40) % [place] % (Auto) (2-11) % Eos % (Auto) (0-4) % Baso % (Auto) (0-2) % Lymph # (Auto) (1.2-4.9) X10*3/uL [place] # (Auto) (0.1-1.2) X10*3/uL Eos # (Auto) (0.0-0.4) X10*3/uL Baso # (Auto) (0.0-0.2) X10*3/uL Abs Immat Gran (auto) (0.00-0.03) X10*3/uL Absolute Neuts (auto) (2.0-8.3) X10*3/uL Absolute Nucleated RBC (0.0-0.012) X10*3/uL Nucleated RBC % (auto) (0.0-0.2) /100WBC Hold Purple Top PT (10.8-13.0) SEC INR (0.9-1.1) APTT (24.1-38.0) SEC Hold Blue Top Sodium (135-145) mmol/L Potassium (3.3-5.1) mmol/L Chloride (96-108) mmol/L Carbon Dioxide (22-29) mmol/L Anion Gap (12-20) BUN (9-16) mg/dL Creatinine (0.5-1.4) mg/dL Estim Creat Clear Calc Estimated GFR Random Glucose (60-115) mg/dL Calcium (8.4-10.2) mg/dL Magnesium (1.6-2.6) mg/dL Troponin I High Sens (<3.5-17.0) ng/L Beta HCG, Quant mIU/mL Urine Color Urine Appearance Urine pH (5.0-8.0) Ur Specific [place] (1.005-1.025) Urine Protein (NEG-TRACE) MG/DL Urine Glucose (UA) (NEG) MG/DL Urine Ketones (NEG) MG/DL Urine Blood (NEG) Urine Nitrite (NEG) Ur Leukocyte Esterase (NEG) Urine RBC (0) /HPF Urine WBC (0-4) /HPF Ur Squamous Epith Cells /LPF Urine Bacteria /LPF Urine Test (NEGATIVE) Stool Occult Blood NEG (NEG) Urine Opiates Screen (Not Detect) Ur Barbiturates Screen (Not Detect) Ur Phencyclidine Scrn (Not Detect) Ur Amphetamines Screen (Not Detect) U Benzodiazepines Scrn (Not Detect) Urine Cocaine Screen (Not Detect) U Marijuana (THC) Screen (Not Detect) Ethyl Alcohol mg/dL COVID-19 ([facility]) (Negative) COVID-19 Clin Com <Izabela Zepeda MD - Last Filed: 10/25/20 03:06> ECG Data Interpretation: Sinus bradycardia with sinus arrhythmia. Ventricular rate 59. Pr interval 172. QRS 82. QTC 4 27. Negative STEMI <ALYSHA Gee - Last Filed: 10/24/20 21:46> Discharge Plan Discharge Clinical Impression: Dizziness, Vertigo <ALYSHA Gee - Last Filed: 10/24/20 21:46> Patient Disposition: Home, Self-Care <ALYSHA Gee - Last Filed: 10/24/20 21:46> Prescriptions: No Action No Known Home Meds RF: 0 <ALYSHA Gee - Last Filed: 10/24/20 21:46> Interventions: ED Discharge Assessment Last Done: 10/25/20 02:58 <ALYSHA Gee - Last Filed: 10/24/20 21:46>
[2020-10-24 13:46] LABS: INTERNATIONAL NORM RATIO 1.1 (0.9-1.1); Prothrombin Time 13.3 SEC (10.8-13.0)
[2020-10-24 13:49] LABS: Partial Thromboplastin Time 27.7 SEC (24.1-38.0)
[2020-10-24 13:54] LABS: Troponin-I High Sensitivity 7.2 ng/L (<3.5-17.0)
[2020-10-24 13:55] LABS: HCG Quantitative < 2 mIU/mL
[2020-10-24] MEDS: iohexoL 350 MG/ML 75 ML INFUS..BTL IV (14:44)
[2020-10-24] MEDS: Butalb/Acetamin/Caff 50/325/40 TABLET 2 TAB PO (15:09)
[2020-10-24] MEDS: Metoclopramide HCl 10 MG/2 ML VIAL IVPUSH (15:09)
[2020-10-24 16:51] LABS: MANUAL DIFF FLAG NO
[2020-10-24 16:52] LABS: Basophils Percent Auto 0.5 % (0-2); Eosinophils Absolute Auto 0.2 X10*3/uL (0.0-0.4); Eosinophils Percent Auto 2.6 % (0-4); Hematocrit 26.3 % (37-47); Hemoglobin 7.5 g/dl (12.0-16.0); Imm Gran Abs Auto 0.02 X10*3/uL (0.00-0.03); Imm Gran Pct Auto 0.3 % (0.0-0.4); Lymphocytes Absolute Auto 1.9 X10*3/uL (1.2-4.9); Lymphocytes Percent Auto 28.6 % (20-40); Mean Corpuscular HGB Conc 28.5 g/dl (31.0-35.0); Mean Corpuscular Hemoglobin 18.2 pg (27.0-33.0); Mean Platelet Volume 8.6 fL (9.4-12.3); Monocytes Absolute Auto 0.5 X10*3/uL (0.1-1.2); Monocytes Percent Auto 6.8 % (2-11); Neutrophils Absolute Auto 4.1 X10*3/uL (2.0-8.3); Neutrophils Percent Auto 61.2 % (45-73); Platelet Count 385 X10*3/uL (160-400); Red Blood Count 4.13 X10*6/uL (4.20-5.50); Red Cell Distribution Width 21.2 % (11.0-16.0); White Blood Count 6.7 X10*3/uL (4.8-10.8)
[2020-10-24 16:53] LABS: Mean Corpuscular Volume 63.7 fL (80-98)
[2020-10-24] MEDS: 0.9 % Sodium Chloride 1,000 ML 999 ML IVCONT ×2 (17:34→19:45)
[2020-10-24 18:20] LABS: Magnesium 2.2 mg/dL (1.6-2.6)
[2020-10-24 18:59] VITALS: BP 114/68; PULSE 75; RESP 16; O2SAT 98
[2020-10-24 20:04] LABS: Glucose Urine UA NEG (NEG); Leukocyte Esterase Urine NEG (NEG); Nitrite Urine NEG (NEG); PH 6.5 (5.0-8.0); Specific Gravity - Urine 1.015 (1.005-1.025); Urine Blood NEG (NEG); Urine Ketones 5 MG/DL (NEG); Urine Protein NEG (NEG-TRACE)
[2020-10-24 20:07] LABS: UPreg QC Valid YES; Urine Pregnancy NEGATIVE (NEGATIVE)
[2020-10-24 20:21] LABS: Appearance Urine CLEAR; Color Urine STRAW
[2020-10-24 20:26] LABS: Ethanol < 10 mg/dL
[2020-10-24 20:29] LABS: Amphetamine Screen Urine Not Detected (Not Detect); Barbiturates, Urine POSITIVE (Not Detect); Benzodiazepines Screen Urine POSITIVE (Not Detect); Cannabinoid Screen Urine POSITIVE (Not Detect); Cocaine Screen Urine Not Detected (Not Detect); Opiate Screen Urine Not Detected (Not Detect); Phencyclidine Screen Urine Not Detected (Not Detect)
[2020-10-24 20:31] LABS: RBC Urine 0-2 /HPF (0); Squamous Epithelial Cell Urine 3+ /LPF; WBC Urine 0-2 /HPF (0-4)
[2020-10-24 20:55] LABS: Troponin-I High Sensitivity 6.9 ng/L (<3.5-17.0)
--- NOTE | 2020-10-24 21:23 | PC.NURSE ---
Patient still complaining of being dizzy and very sleepy. Urine toxicology came back postive for benzos, barbituates and marijuana all of which patient denied when ED safety assessment done
[2020-10-24 21:50] LABS: OBS Int Ctl Valid YES; OBS1 NEG (NEG)
[2020-10-24 21:54] LABS: COVID-19 Test Negative (Negative)
--- NOTE | 2020-10-25 01:06 | PC.NURSE ---
Patient was able to ambulate to the bathroom with assistance and did lose her balance x 2. However, did much better on the way back from the bathroom but still needed assistance. Patient did report some dizzyness.
[2020-10-25 02:00] VITALS: RESP 15; O2SAT 98
--- NOTE | 2020-10-25 02:57 | PC.NURSE ---
Per MD patient ambulated around unit to check her ability to walk. Patient was pretty steady on feet and patient is now ready to be discharged home. Patient will not be driving.
[2020-10-25 04:00] VITALS: BP 116/58; PULSE 83; RESP 15; O2SAT 98
== END 2020-10-25 09:24 | disposition home or self-care (01) ==
PROVIDERS: Physician Assistant; Emergency Provider Emergency Medicine
DX: R42 Dizziness and giddiness (principal); Z20.822 Contact with and (suspected) exposure to COVID-19; Z79.899 Other long term (current) drug therapy
CPT/HCPCS: 36415; 70496; 70498; 70551; 80048; 80307; 80320; 81001; 81025; 82272; 83735; 84484; 84702; 85025; 85060; 85610; 85730; 87635; 93005; 96361; 96365; 96375; 99284; J2765; Q9967